=== PATIENT | female | born 1980 | race Caucasian/White ===

== ENCOUNTER 2017-02-14 13:54 | Emergency (ER) | payer OTHER ==
[2017-02-14] MEDS ORDERED: SODIUM CHLORIDE 0.9% 1,000 ML IV STA (15:11)
[2017-02-14] MEDS ORDERED: KETOROLAC 30 MG/ML 1 ML VIAL IVP STA (15:12)
[2017-02-14] MEDS ORDERED: DIAZEPAM 5 MG/ML 2 ML SYRINGE IVP STA (15:12)
[2017-02-14] MEDS ORDERED: ONDANSETRON 4 MG/2 ML VIAL IVP STA (15:13)
[2017-02-14] MEDS ORDERED: PANTOPRAZOLE 40 MG/10 ML VIAL IVP STA (15:13)
[2017-02-14 15:34] LABS: Amorphous Sediment,Urine Occasional /hpf; Appearance,Urine Cloudy (Clear); Bilirubin,Urine Negative (Negative); Glucose,Urine (UA) Negative (Negative); Ketones,Urine Negative (Negative); Leukocyte Esterase,Urine Negative (Negative); Mucus,Urine Rare /hpf; Nitrite,Urine Negative (Negative); Particle Count 7067; Protein,Urine Negative (Negative); Specific Gravity,Urine 1.014 (1.001-1.035); Squamous Epithelial Cell,Urine <1 /hpf (0-4); UA Billing (MACRO vs. MICRO) MICRO; Urobilinogen,Urine <2.0 mg/dL (<2.0); WBC,Urine 1 /hpf (0-5)
[2017-02-14] MEDS: SODIUM CHLORIDE 0.9% 500 ML IV STA ×2 (15:34→15:35)
--- NOTE | 2017-02-14 15:55 | ED ---
General Adult HPI - General Chief complaint: Recheck/Abnormal Lab/Rx Stated complaint: High BP and Rapid heart rate Time Seen by Provider: 02/14/17 14:36 Source: patient, RN notes reviewed, old records reviewed Mode of arrival: ambulatory Limitations: no limitations - History of Present Illness Initial comments: This is a 36-year-old female here for evaluation what she feels like his elevated heart rate elevated blood pressure. Patient states she does have a history of tachycardia which she is taking Inderal, propranolol 4. That was stopped that she began to have some disagreements regarding medications with her primary family doctor. That is been for about a year. Patient has had significant cardiac evaluation, has been having symptoms for about a week. 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 Denies fever no chest pain no shortness of breath. Complaint now is just palpitations - Related Data Home Medications Medication Instructions Recorded Confirmed Calcium/Magnesium 1 tab PO TID PRN 08/02/16 02/14/17 Chlorpheniramine Maleate 4 mg PO Q4H PRN 08/02/16 02/14/17 [Chlor-Trimeton] Ibuprofen [Motrin] 600 mg PO Q6H PRN 08/02/16 02/14/17 Ondansetron HCl [Zofran] 8 mg PO Q6H PRN 08/02/16 02/14/17 busPIRone HCl [Buspar] 10 mg PO TID PRN 08/02/16 02/14/17 Acetaminophen [Tylenol 8 Hour] 650 mg PO Q4H PRN MDD [id number] 02/14/17 Albuterol Nebulized [Ventolin 2.5 mg INHALATION Q6H PRN 02/14/17 02/14/17 Nebulized] Gantos 10 ml PO Q4H PRN 02/14/17 02/14/17 Hyoscyamine Sulfate [Levsin-Sl] 0.125 mg SUBLINGUAL QID PRN 02/14/17 02/14/17 Loperamide [Imodium] 4 mg PO QID PRN 02/14/17 02/14/17 Trimethobenzamide [Tigan] 300 mg PO Q6H PRN 02/14/17 02/14/17 traZODone HCL [Desyrel] 50 - 150 mg PO HS 02/14/17 02/14/17 Previous Rx's Medication Instructions Recorded Propranolol [Inderal] 10 mg PO TID #90 tab 02/14/17 Allergies Allergy/AdvReac Type Severity Reaction Status Date / Time latex Allergy Anaphylaxis Verified 02/14/17 14:09 Penicillins AdvReac HEADACHE Verified 02/14/17 15:10 Review of Systems ROS Statement: Those systems with pertinent positive or pertinent negative responses have been documented in the HPI. ROS Other: All systems not noted in ROS Statement are negative. Past Medical History Past Medical History: Asthma, Coronary Artery Disease (CAD) Additional Past Medical History / Comment(s): neuropathy, club feet History of Any Multi-Drug Resistant Organisms: None Reported Past Surgical History: Breast Surgery, Orthopedic Surgery Additional Past Surgical History / Comment(s): x7 to Rt foot Past Psychological History: Anxiety Smoking Status: Current every day smoker Past Alcohol Use History: None Reported, Abuse Past Drug Use History: None Reported, Opiates General Exam Limitations: no limitations General appearance: alert, in no apparent distress, anxious Head exam: Present: atraumatic, normocephalic, normal inspection Eye exam: Present: normal appearance, PERRL, EOMI. Absent: scleral icterus, conjunctival injection, periorbital swelling ENT exam: Present: normal exam, mucous membranes moist Neck exam: Present: normal inspection. Absent: tenderness, meningismus, lymphadenopathy Respiratory exam: Present: normal lung sounds bilaterally. Absent: respiratory distress, wheezes, rales, rhonchi, stridor Cardiovascular Exam: Present: regular rate, normal rhythm, tachycardia (In and out of tachycardia), normal heart sounds. Absent: systolic murmur, diastolic murmur, rubs, gallop, clicks GI/Abdominal exam: Present: soft, normal bowel sounds. Absent: distended, tenderness, guarding, rebound, rigid Extremities exam: Present: normal inspection, full ROM, normal capillary refill. Absent: tenderness, pedal edema, joint swelling, calf tenderness Back exam: Present: normal inspection Neurological exam: Present: alert, oriented X3, CN II-XII intact Psychiatric exam: Present: normal affect, normal mood Skin exam: Present: warm, dry, intact, normal color. Absent: rash Course Vital Signs 02/14/17 02/14/17 02/14/17 14:05 14:44 16:04 Temperature 98.3 F Pulse Rate 94 82 61 Respiratory 20 18 17 Rate Blood Pressure 128/81 136/83 115/79 O2 Sat by Pulse 99 99 99 Oximetry 02/14/17 16:56 Temperature 97.4 F L Pulse Rate 73 Respiratory 16 Rate Blood Pressure 110/69 O2 Sat by Pulse 100 Oximetry - Reevaluation(s) Reevaluation #1: 02/14/17 16:59 Patient's symptoms are improved, discussed at length will not prescribe long- term anxiolysis, patient will be placed on her normal Inderal EKG Findings - EKG Comments: EKG Findings:: EKG shows normal sinus rhythm rate of 72, NE 120, QRS 74, QTC 446 Medical Decision Making - Medical Decision Making 36 female at ER for evaluation regarding elevated heart rate, multiple polysubstance withdrawal including opiates and alcohol. Patient is asymptomatic in the emergency room to we'll start patient on her normal Inderal which she did take one year ago. Otherwise patient's feeling better, blood pressure stable, without is normal patient can be discharged home - Lab Data Result diagrams: 02/14/17 16:00 02/14/17 15:30 Lab Results 02/14/17 02/14/17 02/14/17 Range/Units 10:15 10:15 15:30 WBC (3.8-10.6) k/uL RBC (3.80-5.40) m/uL Hgb (11.4-16.0) gm/dL Hct (34.0-46.0) % MCV (80.0-100.0) fL MCH (25.0-35.0) pg MCHC (31.0-37.0) g/dL RDW (11.5-15.5) % Plt Count (150-450) k/uL Neutrophils % % Lymphocytes % % Monocytes % % Eosinophils % % Basophils % % Neutrophils # (1.3-7.7) k/uL Lymphocytes # (1.0-4.8) k/uL Monocytes # (0-1.0) k/uL Eosinophils # (0-0.7) k/uL Basophils # (0-0.2) k/uL Sodium (137-145) mmol/L Potassium (3.5-5.1) mmol/L Chloride (98-107) mmol/L Carbon Dioxide (22-30) mmol/L Anion Gap mmol/L BUN (7-17) mg/dL Creatinine (0.52-1.04) mg/dL Est GFR (MDRD) Af Amer (>60 ml/min/1.73 sqM) Est GFR (MDRD) Non-Af (>60 ml/min/1.73 sqM) Glucose (74-99) mg/dL Calcium (8.4-10.2) mg/dL Phosphorus (2.5-4.5) mg/dL Magnesium (1.6-2.3) mg/dL Total Bilirubin (0.2-1.3) mg/dL AST (14-36) U/L ALT (9-52) U/L Alkaline Phosphatase (38-126) U/L Total Creatine Kinase 27 L (30-135) U/L CK-MB (CK-2) 0.3 (0.0-2.4) ng/mL CK-MB (CK-2) Rel Index 1.1 Troponin I <0.012 (0.000-0.034) ng/mL Total Protein (6.3-8.2) g/dL Albumin (3.5-5.0) g/dL TSH (0.465-4.680) mIU/L Urine Color Yellow Urine Appearance Cloudy H (Clear) Urine pH 8.0 (5.0-8.0) Ur Specific [place] 1.014 (1.001-1.035) Urine Protein Negative (Negative) Urine Glucose (UA) Negative (Negative) Urine Ketones Negative (Negative) Urine Blood Negative (Negative) Urine Nitrite Negative (Negative) Urine Bilirubin Negative (Negative) Urine Urobilinogen <2.0 (<2.0) mg/dL Ur Leukocyte Esterase Negative (Negative) Urine WBC 1 (0-5) /hpf Ur Squamous Epith Cells <1 (0-4) /hpf Amorphous Sediment Occasional H (None) /hpf Urine Mucus Rare H (None) /hpf Urine HCG, Qual Not Detected (Not Detectd) 02/14/17 02/14/17 Range/Units 15:30 16:00 WBC 7.2 (3.8-10.6) k/uL RBC 3.61 L (3.80-5.40) m/uL Hgb 11.6 (11.4-16.0) gm/dL Hct 35.0 (34.0-46.0) % MCV 96.7 (80.0-100.0) fL MCH 32.2 (25.0-35.0) pg MCHC 33.3 (31.0-37.0) g/dL RDW 13.3 (11.5-15.5) % Plt Count 245 (150-450) k/uL Neutrophils % 45 % Lymphocytes % 40 % Monocytes % 7 % Eosinophils % 5 % Basophils % 1 % Neutrophils # 3.2 (1.3-7.7) k/uL Lymphocytes # 2.8 (1.0-4.8) k/uL Monocytes # 0.5 (0-1.0) k/uL Eosinophils # 0.3 (0-0.7) k/uL Basophils # 0.1 (0-0.2) k/uL Sodium 144 (137-145) mmol/L Potassium 4.2 (3.5-5.1) mmol/L Chloride 109 H (98-107) mmol/L Carbon Dioxide 24 (22-30) mmol/L Anion Gap 11 mmol/L BUN 14 (7-17) mg/dL Creatinine 0.61 (0.52-1.04) mg/dL Est GFR (MDRD) Af Amer >60 (>60 ml/min/1.73 sqM) Est GFR (MDRD) Non-Af >60 (>60 ml/min/1.73 sqM) Glucose 89 (74-99) mg/dL Calcium 9.9 (8.4-10.2) mg/dL Phosphorus 4.4 (2.5-4.5) mg/dL Magnesium 2.0 (1.6-2.3) mg/dL Total Bilirubin 0.5 (0.2-1.3) mg/dL AST 37 H (14-36) U/L ALT 56 H (9-52) U/L Alkaline Phosphatase 65 (38-126) U/L Total Creatine Kinase (30-135) U/L CK-MB (CK-2) (0.0-2.4) ng/mL CK-MB (CK-2) Rel Index Troponin I (0.000-0.034) ng/mL Total Protein 8.8 H (6.3-8.2) g/dL Albumin 5.0 (3.5-5.0) g/dL TSH 0.879 (0.465-4.680) mIU/L Urine Color Urine Appearance (Clear) Urine pH (5.0-8.0) Ur Specific [place] (1.001-1.035) Urine Protein (Negative) Urine Glucose (UA) (Negative) Urine Ketones (Negative) Urine Blood (Negative) Urine Nitrite (Negative) Urine Bilirubin (Negative) Urine Urobilinogen (<2.0) mg/dL Ur Leukocyte Esterase (Negative) Urine WBC (0-5) /hpf Ur Squamous Epith Cells (0-4) /hpf Amorphous Sediment (None) /hpf Urine Mucus (None) /hpf Urine HCG, Qual (Not Detectd) Disposition Clinical Impression: Palpitations, Tachycardia Disposition: HOME SELF-CARE Condition: Good Instructions: Tachycardia (ED) Prescriptions: Propranolol [Inderal] 10 mg PO TID #90 tab Referrals: None,Stated [Primary Care Provider] - 1-2 days
[2017-02-14 16:02] LABS: ALT 56 U/L (9-52); AST 37 U/L (14-36); Alkaline Phosphatase 65 U/L (38-126); Anion Gap 11 mmol/L; Blood Urea Nitrogen 14 mg/dL (7-17); Calcium 9.9 mg/dL (8.4-10.2); Carbon Dioxide 24 mmol/L (22-30); Chloride 109 mmol/L (98-107); Glucose 89 mg/dL (74-99); Non-African American GFR(MDRD) >60 (>60 ml/min/1.73 sqM); Phosphorous 4.4 mg/dL (2.5-4.5); Potassium 4.2 mmol/L (3.5-5.1); Sodium 144 mmol/L (137-145); Total Bilirubin 0.5 mg/dL (0.2-1.3); Total Protein 8.8 g/dL (6.3-8.2)
[2017-02-14 16:15] LABS: Basophils # (A) 0.1 k/uL (0-0.2); Basophils % (A) 1 %; CH 31.5; CHCM 32.7; Eosinophils # (A) 0.3 k/uL (0-0.7); Eosinophils % (A) 5 %; HDW 2.42; HGB 11.6 gm/dL (11.4-16.0); Luc # (Auto) 0.25; Luc % (Auto) 4; Lymphocytes # (A) 2.8 k/uL (1.0-4.8); Lymphocytes % (A) 40 %; MCH 32.2 pg (25.0-35.0); MCHC 33.3 g/dL (31.0-37.0); MCV 96.7 fL (80.0-100.0); Mean Platelet Volume 6.9; Monocytes # (A) 0.5 k/uL (0-1.0); Monocytes % (A) 7 %; Neutrophils # (A) 3.2 k/uL (1.3-7.7); Neutrophils % (A) 45 %; RBC 3.61 m/uL (3.80-5.40); RDW 13.3 % (11.5-15.5); WBC 7.2 k/uL (3.8-10.6); WBC (Perox) 7.24
[2017-02-14 16:17] LABS: Creatine Kinase 27 U/L (30-135)
[2017-02-14 16:30] LABS: Creatine Kinase MB 0.3 ng/mL (0.0-2.4); Troponin I <0.012 ng/mL (0.000-0.034)
[2017-02-14 16:57] VITALS: BP 110/69; PULSE 73; RESP 16; TEMP 97.4
[2017-02-14] MEDS ORDERED: cloNIDine 0.3 MG/24HR PATCH 1 PATCH PATCH TRANSDERM SCH (17:00)
== END 2017-02-14 17:25 | disposition home or self-care (01) ==
LOC: EC 13:54
DX: R00.0 Tachycardia, unspecified (principal); R00.2 Palpitations; R03.0 Elevated blood-pressure reading, without diagnosis of hypertension; F41.9 Anxiety disorder, unspecified; F17.200 Nicotine dependence, unspecified, uncomplicated; Z79.899 Other long term (current) drug therapy; Z88.0 Allergy status to penicillin; Z91.040 Latex allergy status
CPT/HCPCS: 99285; 96374; 96375 ×3; 96361 ×2; 36415; 93005; 80053; 82550; 82553; 83735; 84100; 84443; 84484; 85025; 81001; 81025; 87086; J3360; J2405; J1885; C9113